=== PATIENT | male | born 1995 | race Caucasian/White ===

== ENCOUNTER 2016-11-18 23:39 | Emergency (ER) | payer SELFPAY ==
[2016-11-19] MEDS ORDERED: HALOPERIDOL LACTATE 5 MG/ML ONE (00:01)
[2016-11-19 00:07] VITALS: BMI 20.7
--- NOTE | 2016-11-19 00:18 | PDOC ---
History of Present Illness <Rajesh Newman - Last Filed: 11/19/16 00:17> - General History Source: Patient Exam Limitations: Intoxication - History of Present Illness Initial Comments: 11/19/16 01:13 The patient is a 21 year old male with no significant past medical history who arrives to the ED via EMS for intoxication. As per EMS, the patient's father caught the patient drunk at home and could not control him, so he decided to call EMS with concern for alcohol poisoning. In the ED, the patient is combative and uncooperative. The patient denies any past medical history, taking any medications, or any trauma this evening. <Juliana Cortez - Last Filed: 11/19/16 01:57> - General Chief Complaint: Alcohol intoxication Stated Complaint: INTOX Time Seen by Provider: 11/19/16 00:16 Past History - Past Medical History Other medical history: denies - Immunization History Immunization Up to Date: Yes - Psycho/Social/Smoking Cessation Hx Anxiety: No Suicidal Ideation: No Smoking Status: Yes Smoking History: Smoker current status UNK Number of Cigarettes Smoked Daily: 10 Information on smoking cessation initiated: No Hx Alcohol Use: Yes Drug/Substance Use Hx: Yes (cocaine) <Rajesh Newman - Last Filed: 11/19/16 00:17> <Juliana Cortez - Last Filed: 11/19/16 01:57> - Past Medical History Allergies/Adverse Reactions: Allergies Allergy/AdvReac Type Severity Reaction Status Date / Time No Known Allergies Allergy Verified 11/19/16 00:08 Home Medications: Ambulatory Orders Diphenhydramine [Benadryl] 25 mg PO QID #20 tablet 10/12/11 Hydrocortisone 1% Cream [Hytone 1% Cream -] 30 gm NR BID PRN #1 tube 10/12/11 No Home Medications 10/12/11 Review of Systems - Review of Systems Able to Perform ROS?: No (intoxication) <Juliana Cortez - Last Filed: 11/19/16 01:57> *Physical Exam - Vital Signs Last Vital Signs Temp Pulse Resp BP Pulse Ox 97.5 F L 135 H 20 145/85 99 11/19/16 00:05 11/19/16 00:05 11/19/16 00:05 11/19/16 00:05 11/19/16 00:05 <TrentRajesh - Last Filed: 11/19/16 00:17> - Vital Signs Last Vital Signs Temp Pulse Resp BP Pulse Ox 97.5 F L 135 H 20 145/85 99 11/19/16 00:05 11/19/16 00:05 11/19/16 00:05 11/19/16 00:05 11/19/16 00:05 - Physical Exam Comments: 11/19/16 01:21 GENERAL: Awake, alert, and fully oriented, in no acute distress HEAD: No signs of trauma EYES: PERRLA, EOMI, sclera anicteric, conjunctiva clear ENT: Auricles normal inspection, hearing grossly normal, nares patent, oropharynx clear without exudates. Moist mucosa NECK: Normal ROM, supple, no lymphadenopathy, JVD, or masses LUNGS: Breath sounds equal, clear to auscultation bilaterally. No wheezes, and no crackles HEART: Regular rate and rhythm, normal S1 and S2, no murmurs, rubs or gallops ABDOMEN: Soft, nontender, normoactive bowel sounds. No guarding, no rebound. No masses EXTREMITIES: Normal range of motion, no edema. No clubbing or cyanosis. No cords, erythema, or tenderness NEUROLOGICAL: Cranial nerves II through XII grossly intact. Normal speech, normal gait SKIN: Warm, Dry, normal turgor, no rashes or lesions noted. <Juliana Cortez - Last Filed: 11/19/16 01:57> ED Treatment Course - LABORATORY CBC & Chemistry Diagram: 11/19/16 00:47 11/19/16 00:47 - ADDITIONAL ORDERS Additional order review: Laboratory Results 11/19/16 00:20 Urine Color Straw Urine Appearance Clear Urine pH 5.0 Urine Protein Negative Urine Glucose (UA) Negative Urine Ketones Negative Urine Blood Negative Urine Nitrite Negative Urine Bilirubin Negative Urine Urobilinogen Negative Ur Leukocyte Esterase Negative 11/19/16 00:47 RBC 4.43 MCV 94.6 MCHC 34.6 RDW 13.6 MPV 7.2 L Neutrophils % 70.7 Lymphocytes % 21.7 Monocytes % 6.1 Eosinophils % 0.8 Basophils % 0.7 - Medications Given in the ED: ED Medications Discontinued Medications Generic Name Dose Route Start Last Admin Trade Name Freq PRN Reason Stop Dose Admin Diphenhydramine HCl 50 mg 11/19/16 00:34 11/19/16 00:57 Benadryl Injection - IM 11/19/16 00:35 50 mg ONCE ONE Administration Haloperidol 5 mg 11/19/16 00:34 11/19/16 00:57 Haldol Injection (Fast Acting) - IM 11/19/16 00:35 5 mg ONCE ONE Administration Lorazepam 2 mg 11/19/16 00:34 11/19/16 00:57 Ativan Injection - IM 11/19/16 00:35 2 mg ONCE ONE Administration <Juliaan Cortez - Last Filed: 11/19/16 01:57> Medical Decision Making - Medical Decision Making 11/19/16 01:56 Turning over case to overnight physician, Dr. Brewer. <Juliana Cortez - Last Filed: 11/19/16 01:57> *DC/Admit/Observation/Transfer - Attestations Scribe Attestion: 11/19/16 01:22 Documentation prepared by Juliana Cortez, acting as medical file clerk for Rajesh Newman DO. <Juliana Cortez - Last Filed: 11/19/16 01:57>
[2016-11-19] MEDS ORDERED: FOLIC ACID INJECTION - 1 MG, THIAMINE HCL 100 MG, MULTIVIT INJECTION ADULT 10 ML in SOD... IVPB ONE (00:34)
[2016-11-19] MEDS ORDERED: HALOPERIDOL LACTATE 5 MG/ML IM ONE (00:34)
[2016-11-19] MEDS ORDERED: SODIUM CHLORIDE 1,000 ML IV STA (00:38)
[2016-11-19 00:57] LABS: BASOPHIL 0.7 % (0-2.0); EOSINOPHIL 0.8 % (0-4.5); MCH 32.7 pg (25.7-33.7); MCHC 34.6 g/dl (32.0-35.9); MEAN CELL VOLUME 94.6 fl (80-96); MEAN PLT VOLUME 7.2 fl (7.5-11.1); NEUTROPHILS 70.7 % (42.8-82.8); PLATELET COUNT 236 K/MM3 (134-434); RDW 13.6 % (11.9-15.9); WHITE BLOOD COUNT 6.3 K/mm3 (4.0-10.0)
[2016-11-19 00:59] LABS: URINE APPEARANCE CLEAR; URINE BILIRUBIN NEGATIVE (NEGATIVE); URINE BLOOD NEGATIVE (NEGATIVE); URINE COLOR STRAW; URINE GLUCOSE (UA) NEGATIVE (NEGATIVE); URINE KETONE NEGATIVE (NEGATIVE); URINE LEUK ESTERASE NEGATIVE (NEGATIVE); URINE NITRITE NEGATIVE (NEGATIVE); URINE PROTEIN NEGATIVE (NEGATIVE); URINE UROBILINOGEN NEGATIVE mg/dL (0.2-1.0)
[2016-11-19 01:19] LABS: URINE MARIJUANA THC POSITIVE ng/ml (CUTOFF=50)
[2016-11-19 01:31] LABS: ALK PHOS 128 U/L (45-117); ANION GAP 11 (8-16); BILIRUBIN,TOTAL 0.9 mg/dL (0.2-1.0); CALCIUM 8.3 mg/dL (8.5-10.1); CO2 26 mmol/L (21-32); CREATININE 0.9 mg/dL (0.7-1.3); GLUCOSE,RANDOM 108 mg/dL (74-106); SGOT/AST 28 U/L (15-37); SGPT/ALT 34 U/L (12-78); TOT PROT 7.3 g/dl (6.4-8.2)
[2016-11-19 08:47] VITALS: BP 120/66; PULSE 98; TEMP 98.6
--- NOTE | 2016-11-19 08:50 | PDOC ---
*Physical Exam - Vital Signs Last Vital Signs Temp Pulse Resp BP Pulse Ox 98.4 F 88 20 130/82 97 11/19/16 06:39 11/19/16 06:39 11/19/16 03:48 11/19/16 06:39 11/19/16 06:39 ED Treatment Course - LABORATORY CBC & Chemistry Diagram: 11/19/16 00:47 11/19/16 00:47 - ADDITIONAL ORDERS Additional order review: Laboratory Results 11/19/16 11/19/16 11/19/16 00:47 00:47 00:20 Sodium 147 H Potassium 3.3 L Chloride 110 H Carbon Dioxide 26 Anion Gap 11 BUN 9 Creatinine 0.9 Creat Clearance w eGFR > 60 Random Glucose 108 H Calcium 8.3 L Total Bilirubin 0.9 AST 28 ALT 34 Alkaline Phosphatase 128 H Total Protein 7.3 Albumin 4.0 Lipase 110 Urine Color Urine Appearance Urine pH Urine Protein Urine Glucose (UA) Urine Ketones Urine Blood Urine Nitrite Urine Bilirubin Urine Urobilinogen Ur Leukocyte Esterase Opiates Screen Negative Methadone Screen Negative Barbiturate Screen Negative Phencyclidine Screen Negative Ur Amphetamines Screen Negative MDMA (Ecstasy) Screen Negative Benzodiazepines Screen Negative Cocaine Screen Negative U Marijuana (THC) Screen Positive Alcohol, Quantitative 276.5 H* 11/19/16 00:20 Sodium Potassium Chloride Carbon Dioxide Anion Gap BUN Creatinine Creat Clearance w eGFR Random Glucose Calcium Total Bilirubin AST ALT Alkaline Phosphatase Total Protein Albumin Lipase Urine Color Straw Urine Appearance Clear Urine pH 5.0 Urine Protein Negative Urine Glucose (UA) Negative Urine Ketones Negative Urine Blood Negative Urine Nitrite Negative Urine Bilirubin Negative Urine Urobilinogen Negative Ur Leukocyte Esterase Negative Opiates Screen Methadone Screen Barbiturate Screen Phencyclidine Screen Ur Amphetamines Screen MDMA (Ecstasy) Screen Benzodiazepines Screen Cocaine Screen U Marijuana (THC) Screen Alcohol, Quantitative 11/19/16 00:47 RBC 4.43 MCV 94.6 MCHC 34.6 RDW 13.6 MPV 7.2 L Neutrophils % 70.7 Lymphocytes % 21.7 Monocytes % 6.1 Eosinophils % 0.8 Basophils % 0.7 - Medications Given in the ED: ED Medications Discontinued Medications Generic Name Dose Route Start Last Admin Trade Name Freq PRN Reason Stop Dose Admin Diphenhydramine HCl 50 mg 11/19/16 00:34 11/19/16 00:57 Benadryl Injection - IM 11/19/16 00:35 50 mg ONCE ONE Administration Haloperidol 5 mg 11/19/16 00:34 11/19/16 00:57 Haldol Injection (Fast Acting) - IM 11/19/16 00:35 5 mg ONCE ONE Administration Folic Acid 1 mg/ Thiamine HCl 1,000 mls @ 125 mls/hr 11/19/16 00:34 11/19/16 00 :57 100 mg/ Multivitamins/Minerals IVPB 11/19/16 08:33 125 mls/hr 10 ml/ Sodium Chloride ONCE ONE Administration Sodium Chloride 1,000 mls @ 1,000 mls/hr 11/19/16 00:38 11/19/16 00:57 Normal Saline - IV 11/19/16 01:37 1,000 mls/hr ASDIR STA Administration Lorazepam 2 mg 11/19/16 00:34 11/19/16 00:57 Ativan Injection - IM 11/19/16 00:35 2 mg ONCE ONE Administration Medical Decision Making - Medical Decision Making 11/19/16 08:46 pt signed out to me from Dr. Brewer Pt currently clinically sober, without complaints pt ambulatory with a normal gait. no signs of withdrawal pts vitals normalized will dc with pmd fu return precautions were discussed I discussed the physical exam findings, ancillary test results and final diagnoses with the patient. I answered all of the patient's questions. The patient was satisfied with the care received and felt comfortable with the discharge plan and treatment plan. The patient will call their primary care physician within 24 hours to arrange follow-up and will return to the Emergency Department with any new, persistent or worsening symptoms. *DC/Admit/Observation/Transfer Diagnosis at time of Disposition: Alcohol intoxication Qualifiers: Complication of substance-induced condition: uncomplicated Qualified Code(s): F10.920 - Alcohol use, unspecified with intoxication, uncomplicated - Discharge Dispostion Admit: No - Referrals Referrals: [facility] [Provider Group] - Patient Instructions Printed Discharge Instructions: DI for Alcohol Abuse Additional Instructions: Return to the emergency department immediately with ANY new, persistent or worsening symptoms. You MUST call and follow up with your doctor tomorrow for further evaluation of your symptoms. Results were discussed with you. Please make sure your doctor reviews the results of your emergency evaluation. If you had any xrays during your visit, it was read preliminarily by myself, a Radiologist will review it and if there are any additional findings we will call you. Print Language: [id number]
== END 2016-11-19 09:00 | disposition home or self-care (01) ==
LOC: JER 23:39
PROC: 3E033GC Introduction of Other Therapeutic Substance into Peripheral Vein, Percutaneous Approach (ICD-10-PCS; principal; 2016-11-18)
PROC: 3E023GC Introduction of Other Therapeutic Substance into Muscle, Percutaneous Approach (ICD-10-PCS; 2016-11-18)
DX: F10.920 Alcohol use, unspecified with intoxication, uncomplicated (principal)
CPT/HCPCS: 36415; 80053; 80307; 81003; 83690; 85025; 99284-25

== ENCOUNTER 2023-07-10 22:29 | Inpatient (IN) | payer OTHER ==
[2023-07-10 23:43] VITALS: BMI 18.7
[2023-07-11] MEDS ORDERED: POLYETHYLENE GLYCOL (HEALTHYLAX) 3350 17 GM PACKET PO PRN (00:46)
[2023-07-11] MEDS ORDERED: NICOTINE POLACRILEX 4 MG GUM BUC PRN (00:46)
[2023-07-11] MEDS ORDERED: NALOXONE HCL (KLOXXADO) 8 MG SPRAY NS PRN (00:46)
[2023-07-11] MEDS ORDERED: NALOXONE HCL 0.4 MG/ML VIAL IM PRN (00:46)
[2023-07-11] MEDS ORDERED: guaiFENesin 600 MG TABLET.ER (FP) PO PRN (00:46)
[2023-07-11] MEDS ORDERED: MAG HYDROX/AL HYDROX/SIMETH 30 ML UNIT-DOSE CUP PO PRN (00:46)
[2023-07-11] MEDS ORDERED: BENZONATATE 200 MG CAPSULE PO PRN (00:46)
[2023-07-11] MEDS ORDERED: MAGNESIUM HYDROX 2400MG/30ML ORAL SUSPENSION 30 ML CUP PO PRN (00:46)
[2023-07-11] MEDS ORDERED: IBUPROFEN 400 MG TABLET (FP) PO PRN (00:46)
[2023-07-11] MEDS ORDERED: DICYCLOMINE HCL 10 MG CAPSULE PO PRN (00:46)
[2023-07-11] MEDS ORDERED: BENZOCAINE/MENTHOL (CHLORASEPTIC ) LOZENGE MM PRN (00:46)
[2023-07-11] MEDS ORDERED: BISMUTH SUBSALICYLATE 524 MG/30 ML PO PRN (00:46)
[2023-07-11] MEDS ORDERED: ONDANSETRON *ODT* 4 MG TABLET SL PRN (00:46)
[2023-07-11] MEDS ORDERED: LOPERAMIDE HCL 2 MG CAPSULE PO PRN (00:46)
[2023-07-11] MEDS ORDERED: hydrOXYzine PAMOATE 25 MG CAPSULE (FP) PO ONE (02:14)
[2023-07-11] MEDS ORDERED: METHOCARBAMOL 500 MG TABLET ONE (02:14)
[2023-07-11] MEDS: hydrOXYzine PAMOATE 25 MG CAPSULE (FP) PO PRN (02:16)
[2023-07-11] MEDS: METHOCARBAMOL 500 MG TABLET PO PRN (02:16)
[2023-07-11] MEDS: PRENATAL VITAMINS W/ FOLIC ACID TABLET (FP) PO SCH (10:03)
[2023-07-11] MEDS: NICOTINE 14 MG/24 HOURS TOPICAL PATCH TD SCH (10:03)
[2023-07-11] MEDS: diazePAM 5 MG TABLET PO SCH (10:05)
[2023-07-11 11:52] LABS: HEMATOCRIT 41.2 % (35.4-49); HEMOGLOBIN 14.3 GM/dL (11.7-16.9); MCH 32.3 pg (25.7-33.7); MCHC 34.7 g/dl (32.0-35.9); MEAN PLT VOLUME 8.8 fl (7.5-11.1); PLATELET COUNT 263 10^3/uL (134-434); RBC 4.43 M/mm3 (4.00-5.60); RDW 14.4 % (11.9-15.9); WHITE BLOOD COUNT 7.4 K/mm3 (4.0-10.0)
[2023-07-11 12:17] LABS: CHLORIDE 111 mmol/L (98-107); POTASSIUM 4.4 mmol/L (3.5-5.1); SODIUM 145 mmol/L (136-145)
[2023-07-11 12:35] LABS: ALBUMIN 3.1 g/dl (3.4-5.0)
[2023-07-11 12:37] LABS: BLOOD UREA NITROGEN 18.2 mg/dL (7-18)
[2023-07-11 12:40] LABS: ANION GAP 6 mmol/L (4-13); CALCIUM 8.4 mg/dL (8.5-10.1); CO2 27 mmol/L (21-32)
[2023-07-11 12:41] LABS: GLUCOSE,RANDOM 91 mg/dL (74-106)
[2023-07-11 12:44] LABS: ALK PHOS 93 U/L (45-117); CREATININE 0.9 mg/dL (0.55-1.3); SGOT/AST 14 U/L (15-37); SGPT/ALT 34 U/L (13-61); TOT PROT 6.2 g/dl (6.4-8.2)
[2023-07-11 12:45] LABS: BILIRUBIN,TOTAL 0.3 mg/dL (0.2-1)
[2023-07-11 13:07] LABS: HIV INTERPRETATION NEGATIVE (NEGATIVE)
[2023-07-11] MEDS: ACETAMINOPHEN 325 MG TABLET (FP) PO PRN (17:29)
[2023-07-11] MEDS ORDERED: MELATONIN 5 MG TABLETS PO SCH (22:00)
[2023-07-11] MEDS: THIAMINE HCL 100 MG TABLET (FP) PO SCH (23:00)
[2023-07-11] MEDS: SUVOREXANT 10 MG TABLET PO PRN (23:00)
[2023-07-12] MEDS: diazePAM 5 MG TABLET PO SCH (05:16)
[2023-07-12] MEDS: SILVER SULFADIAZINE 1% TOP CREAM 50 GM JAR TP SCH (08:20)
[2023-07-12] MEDS: IBUPROFEN 600 MG TABLET (FP) PO PRN (10:20)
[2023-07-13] MEDS: diazePAM 5 MG TABLET PO SCH (06:12)
[2023-07-13] MEDS: diazePAM 5 MG TABLET PO PRN (21:59)
[2023-07-14] MEDS: diazePAM 5 MG TABLET PO ONE (05:43)
[2023-07-14 09:11] VITALS: BP 113/66; PULSE 83; RESP 20; TEMP 97.7
== END 2023-07-14 09:46 | disposition home or self-care (01) | DRG 773 ==
LOC: YASAS 22:29 → Y6N 07-11 01:43
PROVIDERS: ADMIT Allergy & Immunology; ATTEND Surgery
PROC: HZ2ZZZZ Detoxification Services for Substance Abuse Treatment (ICD-10-PCS; principal; 2023-07-11)
DX: F10.230 Alcohol dependence with withdrawal, uncomplicated (principal); F11.20 Opioid dependence, uncomplicated; F14.20 Cocaine dependence, uncomplicated; F16.20 Hallucinogen dependence, uncomplicated; F12.20 Cannabis dependence, uncomplicated; F17.210 Nicotine dependence, cigarettes, uncomplicated; F19.282 Other psychoactive substance dependence with psychoactive substance-induced sleep disorder; F19.280 Other psychoactive substance dependence with psychoactive substance-induced anxiety disorder; F19.24 Other psychoactive substance dependence with psychoactive substance-induced mood disorder; G47.00 Insomnia, unspecified; Z62.810 Personal history of physical and sexual abuse in childhood; Z63.8 Other specified problems related to primary support group; Z28.310 Unvaccinated for COVID-19; Z28.9 Immunization not carried out for unspecified reason; Z56.0 Unemployment, unspecified; Z59.00 Homelessness unspecified
CPT/HCPCS: 36415; 80053; 80307; 82962; 85027; 86780; 87389; 87811; 93005; 93010

== ENCOUNTER 2023-07-28 14:03 | Inpatient (IN) | payer OTHER ==
[2023-07-28 15:08] VITALS: BMI 18.5
[2023-07-28] MEDS ORDERED: LOPERAMIDE HCL 2 MG CAPSULE PO PRN (15:47)
[2023-07-28] MEDS ORDERED: NALOXONE HCL (KLOXXADO) 8 MG SPRAY NS PRN (15:47)
[2023-07-28] MEDS ORDERED: DICYCLOMINE HCL 10 MG CAPSULE PO PRN (15:47)
[2023-07-28] MEDS ORDERED: MAGNESIUM HYDROX 2400MG/30ML ORAL SUSPENSION 30 ML CUP PO PRN (15:47)
[2023-07-28] MEDS ORDERED: IBUPROFEN 400 MG TABLET (FP) PO PRN (15:47)
[2023-07-28] MEDS ORDERED: NALOXONE HCL 0.4 MG/ML VIAL IM PRN (15:47)
[2023-07-28] MEDS ORDERED: MAG HYDROX/AL HYDROX/SIMETH 30 ML UNIT-DOSE CUP PO PRN (15:47)
[2023-07-28] MEDS ORDERED: guaiFENesin 600 MG TABLET.ER (FP) PO PRN (15:47)
[2023-07-28] MEDS ORDERED: BISMUTH SUBSALICYLATE 524 MG/30 ML PO PRN (15:47)
[2023-07-28] MEDS ORDERED: BENZONATATE 200 MG CAPSULE PO PRN (15:47)
[2023-07-28] MEDS ORDERED: ONDANSETRON *ODT* 4 MG TABLET SL PRN (15:47)
[2023-07-28] MEDS ORDERED: POLYETHYLENE GLYCOL (HEALTHYLAX) 3350 17 GM PACKET PO PRN (15:47)
[2023-07-28] MEDS ORDERED: BENZOCAINE/MENTHOL (CHLORASEPTIC ) LOZENGE MM PRN (15:47)
[2023-07-28] MEDS ORDERED: PRENATAL VITAMINS W/ FOLIC ACID TABLET (FP) PO ONE (17:05)
[2023-07-28] MEDS ORDERED: methaDONE HCL 10 MG TABLET (FOR DETOX USE ONLY) ONE (17:05)
[2023-07-28] MEDS: methaDONE HCL 10 MG TABLET (FOR DETOX USE ONLY) PO ONE (17:19)
[2023-07-28] MEDS: PRENATAL VITAMINS W/ FOLIC ACID TABLET (FP) PO SCH (17:20)
[2023-07-28] MEDS: NICOTINE 7 MG/24 HOURS TOPICAL PATCH TD SCH (17:54)
[2023-07-28] MEDS: cloNIDine HCL 0.1 MG TABLET PO SCH (17:54)
[2023-07-28] MEDS: IBUPROFEN 600 MG TABLET (FP) PO PRN (17:55)
[2023-07-28] MEDS: THIAMINE 100 MG TABLET PO SCH (22:25)
[2023-07-28] MEDS: MELATONIN 5 MG TABLETS PO SCH (22:25)
[2023-07-28] MEDS: BUPRENORPHINE/NALOXONE 0.5 MG/0.125 MG FILM SL ONE (22:25)
[2023-07-29] MEDS: diazePAM 5 MG TABLET PO PRN (01:02)
[2023-07-29] MEDS: BUPRENORPHINE/NALOXONE 0.5 MG/0.125 MG FILM SL SCH (10:10)
[2023-07-29] MEDS: METHOCARBAMOL 500 MG TABLET PO PRN (10:10)
[2023-07-29 14:13] LABS: HEMATOCRIT 38.2 % (35.4-49); MCH 32.1 pg (25.7-33.7); MEAN CELL VOLUME 94.6 fl (80-96); MEAN PLT VOLUME 8.4 fl (7.5-11.1); PLATELET COUNT 221 10^3/uL (134-434); RBC 4.03 M/mm3 (4.00-5.60); RDW 14.5 % (11.9-15.9); WHITE BLOOD COUNT 6.8 K/mm3 (4.0-10.0)
[2023-07-29 14:31] LABS: BLOOD UREA NITROGEN 18.5 mg/dL (7-18); CALCIUM 8.2 mg/dL (8.5-10.1)
[2023-07-29 14:34] LABS: CREATININE 0.9 mg/dL (0.55-1.3)
[2023-07-29 14:35] LABS: BILIRUBIN,TOTAL 0.3 mg/dL (0.2-1); TOT PROT 5.8 g/dl (6.4-8.2)
[2023-07-29 16:26] LABS: POTASSIUM 3.9 mmol/L (3.5-5.1)
[2023-07-29] MEDS: MINERAL OIL/PET HY-PHL TOPICAL OINTMENT 454 GM JAR TP SCH (22:06)
[2023-07-30] MEDS: hydrOXYzine PAMOATE 25 MG CAPSULE (FP) PO PRN (01:25)
[2023-07-30] MEDS: BUPRENORPHINE/NALOXONE 2 MG/0.5 MG FILM PACKET SL SCH (10:14)
[2023-07-30] MEDS: methaDONE HCL 10 MG TABLET (FOR DETOX USE ONLY) PO ONE (10:16)
[2023-07-30] MEDS: ACETAMINOPHEN 325 MG TABLET (FP) PO PRN (22:15)
[2023-07-31] MEDS: BUPRENORPHINE/NALOXONE 4 MG/1 MG FILM PACKET SL SCH (10:35)
[2023-07-31] MEDS: diazePAM 5 MG TABLET PO PRN (14:21)
[2023-07-31] MEDS: MIRTAZAPINE 15 MG TABLET (FP) PO SCH (22:18)
[2023-08-01] MEDS: BACITRACIN 0.9 GM PACKET TP SCH (09:28)
[2023-08-01] MEDS: BUPRENORPHINE/NALOXONE 8 MG/2 MG FILM PACKET SL SCH (09:29)
[2023-08-01] MEDS: methaDONE HCL 10 MG TABLET (FOR DETOX USE ONLY) PO ONE (09:29)
[2023-08-02] MEDS: BUPRENORPHINE/NALOXONE 8 MG/2 MG FILM PACKET SL SCH (10:12)
[2023-08-03 12:16] VITALS: RESP 18
[2023-08-03 13:46] VITALS: BP 123/66; PULSE 107; TEMP 98.2
== END 2023-08-03 14:50 | disposition other institution (70) | DRG 773 ==
LOC: YASAS 14:03 → Y3N 16:47
PROVIDERS: ADMIT Allergy & Immunology; ATTEND Surgery
PROC: HZ2ZZZZ Detoxification Services for Substance Abuse Treatment (ICD-10-PCS; principal; 2023-07-28)
DX: F11.23 Opioid dependence with withdrawal (principal); F14.20 Cocaine dependence, uncomplicated; F10.10 Alcohol abuse, uncomplicated; F16.10 Hallucinogen abuse, uncomplicated; F17.210 Nicotine dependence, cigarettes, uncomplicated; F19.282 Other psychoactive substance dependence with psychoactive substance-induced sleep disorder; F19.280 Other psychoactive substance dependence with psychoactive substance-induced anxiety disorder; F19.24 Other psychoactive substance dependence with psychoactive substance-induced mood disorder; F41.9 Anxiety disorder, unspecified; G47.00 Insomnia, unspecified; Z28.310 Unvaccinated for COVID-19; Z28.9 Immunization not carried out for unspecified reason; Z59.01 Sheltered homelessness
CPT/HCPCS: 36415; 80053; 85027; 86780; 87811; 93005; 93010

== ENCOUNTER 2023-08-03 15:17 | Inpatient (IN) | payer OTHER ==
[2023-08-03 15:34] VITALS: RESP 18
[2023-08-03] MEDS ORDERED: guaiFENesin 600 MG TABLET.ER (FP) PO PRN (18:19)
[2023-08-03] MEDS ORDERED: IBUPROFEN 400 MG TABLET (FP) PO PRN (18:19)
[2023-08-03] MEDS ORDERED: BENZOCAINE/MENTHOL (CHLORASEPTIC ) LOZENGE MM PRN (18:19)
[2023-08-03] MEDS ORDERED: NALOXONE HCL 0.4 MG/ML VIAL IVPUSH PRN (18:19)
[2023-08-03] MEDS ORDERED: MAG HYDROX/AL HYDROX/SIMETH 30 ML UNIT-DOSE CUP PO PRN (18:19)
[2023-08-03] MEDS ORDERED: NALOXONE (NYS OPIOID OVERDOSE PROGRAM) 4 MG/0.1 ML SPRAY NS PRN (18:19)
[2023-08-03] MEDS ORDERED: LOPERAMIDE HCL 2 MG CAPSULE PO PRN (18:19)
[2023-08-03] MEDS ORDERED: IBUPROFEN 600 MG TABLET (FP) PO PRN (18:19)
[2023-08-03] MEDS ORDERED: POLYETHYLENE GLYCOL (HEALTHYLAX) 3350 17 GM PACKET PO PRN (18:19)
[2023-08-03] MEDS ORDERED: MAGNESIUM HYDROX 2400MG/30ML ORAL SUSPENSION 30 ML CUP PO PRN (18:19)
[2023-08-03] MEDS ORDERED: BENZONATATE 200 MG CAPSULE PO PRN (18:19)
[2023-08-03] MEDS ORDERED: ACETAMINOPHEN 325 MG TABLET (FP) PO PRN (18:19)
[2023-08-03] MEDS: MIRTAZAPINE 15 MG TABLET (FP) PO SCH (21:38)
[2023-08-03] MEDS: diphenhydrAMINE HCL 25 MG CAPSULE (FP) PO PRN (21:38)
[2023-08-03] MEDS: MELATONIN 5 MG TABLETS PO SCH (21:38)
[2023-08-03] MEDS: THIAMINE HCL 100 MG TABLET (FP) PO SCH (21:39)
[2023-08-03] MEDS: METHOCARBAMOL 500 MG TABLET PO PRN (22:12)
[2023-08-04 06:58] VITALS: BP 151/93; PULSE 90; TEMP 97.5
[2023-08-04] MEDS: PRENATAL VITAMINS W/ FOLIC ACID TABLET (FP) PO SCH (10:08)
== END 2023-08-04 16:50 | disposition home or self-care (01) | DRG 772 ==
LOC: YASAS 15:17 → Y5N 15:19
PROVIDERS: ADMIT Allergy & Immunology; ATTEND Psychiatry & Neurology Pain Medicine
PROC: HZ42ZZZ Group Counseling for Substance Abuse Treatment, Cognitive-Behavioral (ICD-10-PCS; principal; 2023-08-03)
DX: F11.20 Opioid dependence, uncomplicated (principal); F14.20 Cocaine dependence, uncomplicated; F10.20 Alcohol dependence, uncomplicated; F16.10 Hallucinogen abuse, uncomplicated; F17.210 Nicotine dependence, cigarettes, uncomplicated; F41.9 Anxiety disorder, unspecified; Z86.59 Personal history of other mental and behavioral disorders; Z59.01 Sheltered homelessness

== ENCOUNTER 2023-08-28 17:24 | Inpatient (IN) | payer OTHER ==
[2023-08-28 17:59] VITALS: BMI 17.9
[2023-08-28] MEDS ORDERED: IBUPROFEN 400 MG TABLET (FP) PO PRN (18:18)
[2023-08-28] MEDS ORDERED: POLYETHYLENE GLYCOL (HEALTHYLAX) 3350 17 GM PACKET PO PRN (18:18)
[2023-08-28] MEDS ORDERED: DICYCLOMINE HCL 10 MG CAPSULE PO PRN (18:18)
[2023-08-28] MEDS ORDERED: ACETAMINOPHEN 325 MG TABLET (FP) PO PRN (18:18)
[2023-08-28] MEDS ORDERED: DOCUSATE SODIUM 100 MG CAPSULE (FP) PO PRN (18:18)
[2023-08-28] MEDS ORDERED: P-EPHED 60MG/TRIPROLIDI 2.5MG TABLET PO PRN (18:18)
[2023-08-28] MEDS ORDERED: guaiFENesin 600 MG TABLET.ER (FP) PO PRN (18:18)
[2023-08-28] MEDS ORDERED: LOPERAMIDE HCL 2 MG CAPSULE PO PRN (18:18)
[2023-08-28] MEDS ORDERED: NALOXONE HCL 0.4 MG/ML VIAL IM PRN (18:18)
[2023-08-28] MEDS ORDERED: MAGNESIUM HYDROX 2400MG/30ML ORAL SUSPENSION 30 ML CUP PO PRN (18:18)
[2023-08-28] MEDS ORDERED: IBUPROFEN 600 MG TABLET (FP) PO PRN (18:18)
[2023-08-28] MEDS ORDERED: NALOXONE HCL (KLOXXADO) 8 MG SPRAY NS PRN (18:18)
[2023-08-28] MEDS ORDERED: BENZOCAINE/MENTHOL (CHLORASEPTIC ) LOZENGE MM PRN (18:18)
[2023-08-28] MEDS ORDERED: BISMUTH SUBSALICYLATE 524 MG/30 ML PO PRN (18:18)
[2023-08-28] MEDS ORDERED: BENZONATATE 200 MG CAPSULE PO PRN (18:18)
[2023-08-28] MEDS ORDERED: diazePAM 5 MG TABLET ONE (18:47)
[2023-08-28] MEDS ORDERED: METHOCARBAMOL 500 MG TABLET ONE (18:48)
[2023-08-28] MEDS: METHOCARBAMOL 500 MG TABLET PO PRN (18:53)
[2023-08-28] MEDS: diazePAM 5 MG TABLET PO ONE (18:53)
[2023-08-28] MEDS: THIAMINE 100 MG TABLET PO SCH (22:27)
[2023-08-28] MEDS: MELATONIN 5 MG TABLETS PO SCH (22:27)
[2023-08-28] MEDS: diazePAM 5 MG TABLET PO SCH (22:28)
[2023-08-29] MEDS: PRENATAL VITAMINS W/ FOLIC ACID TABLET (FP) PO SCH (10:42)
[2023-08-29] MEDS: hydrOXYzine PAMOATE 25 MG CAPSULE (FP) PO PRN (10:45)
[2023-08-29 13:04] LABS: HEMATOCRIT 40.2 % (35.4-49); HEMOGLOBIN 13.9 GM/dL (11.7-16.9); MCH 32.9 pg (25.7-33.7); MCHC 34.7 g/dl (32.0-35.9); MEAN CELL VOLUME 94.8 fl (80-96); MEAN PLT VOLUME 8.4 fl (7.5-11.1); PLATELET COUNT 280 10^3/uL (134-434); RBC 4.24 M/mm3 (4.00-5.60); RDW 14.2 % (11.9-15.9); WHITE BLOOD COUNT 11.8 K/mm3 (4.0-10.0)
[2023-08-29 13:43] LABS: CHLORIDE 108 mmol/L (98-107); POTASSIUM 4.4 mmol/L (3.5-5.1); SODIUM 139 mmol/L (136-145)
[2023-08-29 13:49] LABS: ANION GAP 5 mmol/L (4-13); BLOOD UREA NITROGEN 11.2 mg/dL (7-18); CALCIUM 8.3 mg/dL (8.5-10.1); CO2 26 mmol/L (21-32); GLUCOSE,RANDOM 143 mg/dL (74-106)
[2023-08-29 13:51] LABS: CREATININE 0.8 mg/dL (0.55-1.3); SGPT/ALT 40 U/L (13-61)
[2023-08-29 13:52] LABS: SGOT/AST 11 U/L (15-37)
[2023-08-29 13:53] LABS: TOT PROT 6.5 g/dl (6.4-8.2)
[2023-08-29 13:54] LABS: BILIRUBIN,TOTAL 0.8 mg/dL (0.2-1)
[2023-08-29 13:55] LABS: ALK PHOS 101 U/L (45-117)
[2023-08-30] MEDS: diazePAM 5 MG TABLET PO SCH (05:41)
[2023-08-30] MEDS: diazePAM 5 MG TABLET PO PRN (17:27)
[2023-08-30] MEDS: MAG HYDROX/AL HYDROX/SIMETH 30 ML UNIT-DOSE CUP PO PRN (20:49)
[2023-08-31] MEDS: diazePAM 5 MG TABLET PO SCH (06:37)
[2023-08-31] MEDS: ONDANSETRON *ODT* 4 MG TABLET SL PRN (07:19)
[2023-09-01] MEDS: diazePAM 5 MG TABLET PO ONE (06:31)
[2023-09-01 06:52] VITALS: RESP 16
[2023-09-01 09:33] VITALS: BP 129/68; PULSE 96; TEMP 96.9
== END 2023-09-01 09:22 | disposition home or self-care (01) | DRG 773 ==
LOC: YASAS 17:24 → Y6N 18:26
PROVIDERS: ADMIT Allergy & Immunology; ATTEND Surgery
PROC: HZ2ZZZZ Detoxification Services for Substance Abuse Treatment (ICD-10-PCS; principal; 2023-08-28)
DX: F10.230 Alcohol dependence with withdrawal, uncomplicated (principal); F11.20 Opioid dependence, uncomplicated; F12.20 Cannabis dependence, uncomplicated; F17.210 Nicotine dependence, cigarettes, uncomplicated; F19.282 Other psychoactive substance dependence with psychoactive substance-induced sleep disorder; F19.280 Other psychoactive substance dependence with psychoactive substance-induced anxiety disorder; F19.24 Other psychoactive substance dependence with psychoactive substance-induced mood disorder; Z59.01 Sheltered homelessness
CPT/HCPCS: 36415; 80053; 80305; 80307; 85027; 86780; Q0162

== ENCOUNTER 2023-09-30 09:10 | Emergency (ER) | payer OTHER ==
[2023-09-30 09:23] VITALS: BP 107/57; PULSE 93; RESP 20; TEMP 98.8; BMI 21.5
== END 2023-09-30 09:50 | disposition home or self-care (01) ==
LOC: JERFT 09:10
DX: R21 Rash and other nonspecific skin eruption (principal)
CPT/HCPCS: 99283-25

== ENCOUNTER 2023-10-07 11:07 | Emergency (ER) | payer OTHER ==
[2023-10-07 11:16] VITALS: BP 107/58; PULSE 73; RESP 20; TEMP 98.3; BMI 22.9
== END 2023-10-07 14:19 | disposition home or self-care (01) ==
LOC: JERFT 11:07
DX: L73.9 Follicular disorder, unspecified (principal); B35.6 Tinea cruris; R21 Rash and other nonspecific skin eruption
CPT/HCPCS: 99283-25